=== PATIENT | male | born 1960 | race Caucasian/White ===

== ENCOUNTER 2019-03-11 10:37 | Outpatient (CLI) | payer MEDICARE ==
--- NOTE | 2019-03-11 13:56 | CT ---
CT LUMBAR SPINE: Axial tomograms obtained through the lumbar spine with multiplanar reconstruction. INDICATION: Lumbar radiculopathy. COMPARISON: No comparison. FINDINGS: Lumbar vertebrae maintain normal height in the sagittal plane. Mild to moderate degenerative osteoph ytes are seen. Moderately severe degenerative disk changes are noted at L4-5 and L5-S1 with vacuum p henomenon and loss of disk space at both of these levels. There is a mild anterolisthesis at L4-5 me asured at 7 mm in the sagittal plane. Findings at each disk level are described. At L1-2, mild diffuse disk bulge is present flattening the thecal sac. Mild facet hypertrophy. Mil central canal stenosis. Asymmetric disk bulge to the right extends into the right foramina and exten ds laterally on the right. This appears to contact and displace the exiting right L1 nerve root. At L2-3, diffuse disk bulge involving facet hypertrophy as well as mild central canal stenosis. Mild bilateral foraminal encroachment due to diffuse disk bulge and facet hypertrophy. At L3-4, diffuse disk bulge with facet hypertrophy results in mild central canal stenosis. Short ped icles contribute to the central canal stenosis at all levels. Left foraminal stenosis is noted. At L4-5, anterolisthesis with degenerative disk changes as described above. Severe facet arthrosis a nd hypertrophy. Disk bulge. Severe central canal stenosis. Bilateral foraminal stenosis. At L5-S1, degenerative disk changes as noted above. Mild diffuse disk bulge. Mild central canal monica nosis. Mild foraminal stenosis due to facet hypertrophy. IMPRESSION: Short pedicles contribute to central canal stenosis at all levels. Severe central canal stenosis at L4-5 is noted as described above. Foraminal stenosis is present as noted above. POS: [facility]
== END 2019-03-11 10:38 | disposition home or self-care (01) ==
LOC: TBSIIMAG 10:37
PROVIDERS: ATTEND Neurological Surgery
DX: M54.16 Radiculopathy, lumbar region (principal); M48.061 Spinal stenosis, lumbar region without neurogenic claudication; M48.07 Spinal stenosis, lumbosacral region
CPT/HCPCS: 72131